=== PATIENT | male | born 1955 | race Caucasian/White ===

== ENCOUNTER 2017-08-30 11:30 | Emergency (ER) | payer OTHER ==
[~2017-08-30] VITALS: Ht 167.6 cm; Wt 63.5 kg
[2017-08-30 11:55] VITALS: BP 156/90
[2017-08-30] MEDS ORDERED: MEDROL4 M2 PO (14:51)
[2017-08-30] MEDS ORDERED: IBUPROFEN800 M1 PO (14:51)
[2017-08-30] MEDS ORDERED: PERCOCET 5-3251 EACH PO (14:51)
[2017-08-30] MEDS ORDERED: CYCLOBENZAPRINE10 M1 PO (14:51)
--- NOTE | 2017-08-30 14:52 | ED NECK/BACK PAIN COMPLAINT ---
History of Present Illness General Chief Complaint: Low Back Pain/Injury Stated Complaint: BACK PAIN/RT HIP PAIN Source: patient Exam Limitations: no limitations Vital Signs & Intake/Output Vital Signs & Intake/Output Vital Signs Date Time Temp Pulse Resp B/P B/P Pulse O2 O2 Flow FiO2 Mean Ox Delivery Rate 08/30 1455 98 Room Air 08/30 1155 96.9 76 16 156/90 98 Room Air Allergies Coded Allergies: No Known Drug Allergies (Intermediate, NO KNOWN DRUG ALLERGIES 08/30/17) Reconcile Medications Cyclobenzaprine HCl 10 MG TABLET 1 TAB PO TID SPASMS Ibuprofen 800 MG TABLET 1 TAB PO TID PAIN Methylprednisolone. (Medrol) 4 MG TAB.DS.PK 1 DP PO AD back pain 6 on day 1 then reduce by one tablet daily until gone Oxycodone HCl/Acetaminophen (Percocet 5-325 MG Tablet) 5 MG-325 MG TABLET 1-2 TAB PO Q6P PRN pain Triage Note: C/O MID BACK PAIN X 3 DAYS, OCCURRED WHILE PULLING OFF POOL COVER AND MOVING HEAVY BLOCKS. PAIN RADIATES TO R BUTTOCK, KNEE AND CALF. Triage Nurses Notes Reviewed? yes Onset: Abrupt Duration: day(s): (4), constant, getting worse Timing: recent history Quality/Severity: moderate, severe Location: lumbar spine Method of Injury: lifting Loss of Consciousness: no loss of consciousness HPI: 62-year-old male comes into the emergency room for further evaluation of right- sided low back pain radiating down to his right leg. Patient reports that this past weekend he was pulling the pool cover off of his pool and felt a twinge in his low back. He reports that he felt okay initially the first day and then the following night after doing some more yard work and lifting he felt severe pain in his right lower back and was having difficulty with ambulation and movement. He has been taking aspirin with minimal relief. Symptoms have gotten progressively worse and comes in for further evaluation. No urinary bowel function. Denies any other associated symptoms. (Allen Calderon) Past History Travel History Traveled to [place] past 21 day No Medical History Any Pertinent Medical History? see below for history Neurological: NONE EENT: NONE Cardiovascular: NONE Respiratory: NONE Gastrointestinal: NONE Hepatic: NONE Renal: NONE Psychiatric: NONE Endocrine: NONE Blood Disorders: NONE Surgical History Surgical History: non-contributory Psychosocial History What is your primary language [place] Tobacco Use: Never used ETOH Use: occasional use Family History Hx Contributory? No (Allen Calderon) Review of Systems Review of Systems Constitutional: Reports: no symptoms. Eyes: Reports: no symptoms. Ears, Nose, Throat, Mouth: Reports: no symptoms. Respiratory: Reports: no symptoms. Cardiovascular: Reports: no symptoms. Gastrointestinal/Abdominal: Reports: no symptoms. Musculoskeletal: Reports: see HPI. Skin: Reports: no symptoms. Neurological/Psychological: Reports: no symptoms. All Other Systems: Reviewed and Negative (Allen Calderon) Physical Exam Physical Exam General Appearance: well developed/nourished, mild distress Head: atraumatic Eyes: Bilateral: normal appearance. Ears, Nose, Throat, Mouth: hearing grossly normal, moist mucous membrane Neck: normal inspection, full range of motion Respiratory: normal breath sounds, no respiratory distress Cardiovascular: regular rate/rhythm Back: normal inspection Extremities: normal range of motion Straight Leg Raising: Right: Pain at ____ degrees (45). Motor: Deficit L4 Right: No Deficit L4 Left: No Deficit L5 Right: No Deficit L5 Left: No Deficit S1 Right: No Deficit S1 Right: No Neurologic/Psych: awake, alert, oriented x 3, normal mood/affect Skin: intact, normal color, warm/dry Core Measures CVA/TIA Diagnosis: No (Allen Calderon) Progress Differential Diagnosis: cauda equina syn, herniated disc, myofascial strain, sciatica Plan of Care: 08/30/2017 3:19:48 PM Pain is worse with range of motion. No urinary bowel dysfunction. No genital numbness. No weakness in the lower extremity. Normal dorsiflexion of great toe. Gross sensation intact. No saddle paresthesia. Considered things like cauda equina have a do not feel that patient's symptoms at this point in time are consistent with this diagnosis. Patient has no other symptoms that could be attributing to back pain. No abdominal pain, shortness of breath, chest pain. Patient is to follow-up with primary care doctor for recheck. If symptoms persist patient should be considered for an MRI of the lower back. Patient is to return immediately if any nausea vomiting, fever, weakness in the legs, urinary bowel dysfunction, abdominal pain, chest pain, shortness of breath. No weight loss. No night sweats. (Allen Calderon) Departure Departure Disposition: HOME OR SELF CARE Condition: Stable Clinical Impression Primary Impression: Lumbar radiculopathy, acute Referrals: Melodie ORELLANA,Jose Roper (PCP/Family) Additional Instructions: Take Percocet, Medrol Dosepak, ibuprofen, and Flexeril as prescribed. Follow-up with primary care doctor. Get outpatient MRI of low back. Please go over all results of today's visit with your primary care doctor. Contact your primary care doctor to let them know you were here in the emergency room. There may be nonspecific findings which may not be related to your visit today here in the emergency room but may require further evaluation and chronic monitoring by your primary care doctor. If you had a laceration today the chance of foreign body always remains. You should follow-up with your primary care doctor for recheck in 3-5 days for a wound check. If you had an x-ray done there is a chance that a fracture could have been missed on initial read and you should follow-up with your primary care doctor for repeat x-rays if symptoms persist. If your blood pressure was elevated here in the emergency room please have rechecked by [facility] primary care doctor within the next 48. If you were prescribed a narcotic here in the emergency room or any type of controlled substances you're not allowed to drive while taking this medication or operate any type of heavy machinery. Narcotics can make you feel lightheaded dizziness nausea and can cause constipation. You may need to pickers material handlers a stool softener. Thank you for choosing [facility] emergency room. Please return to the emergency room immediately if you have any other concerns worsening of symptoms. Departure Forms: Customer Survey General Discharge Information Prescriptions: Current Visit Scripts Oxycodone HCl/Acetaminophen (Percocet 5-325 MG Tablet) 1-2 TAB PO Q6P PRN pain #15 TAB Methylprednisolone. (Medrol) 1 DP PO AD #1 DP 6 on day 1 then reduce by one tablet daily until gone Cyclobenzaprine HCl 1 TAB PO TID #30 TAB Ibuprofen 1 TAB PO TID #30 TAB (Allen Calderon) PA/COMMUNITY COORDINATOR Co-Sign Statement Statement: ED Attending supervision documentation- [] I saw and evaluated the patient. I have also reviewed all the pertinent lab results and diagnostic results. I agree with the findings and the plan of care as documented in the PA's/COMMUNITY COORDINATOR's documentation. [X] I have reviewed the ED Record and agree with the PA's/COMMUNITY COORDINATOR's documentation. [] Additions or exceptions (if any) to the PAs/COMMUNITY COORDINATOR's note and plan are summarized below: [] (Damian Leblanc DO)
== END 2017-08-30 15:29 ==
LOC: ERH 11:30
DX: M54.16 Radiculopathy, lumbar region (principal)